=== PATIENT | male | born 1990 | race Caucasian/White ===

== ENCOUNTER 2016-10-23 18:21 | Emergency (ER) | payer OTHER ==
[2016-10-23 19:12] VITALS: BP 136/77
--- NOTE | 2016-10-23 19:20 | EDM.PDOC ---
ED HPI GENERAL MEDICAL PROBLEM - General Chief Complaint: Upper Extremity Injury/Pain Stated Complaint: PAIN IN LEFT WRIST Time Seen by Provider: 10/23/16 19:13 Source of Information: Reports: Patient, Family, RN Notes Reviewed History Limitations: Reports: No Limitations - History of Present Illness INITIAL COMMENTS - FREE TEXT/NARRATIVE: 26-year-old gentleman presents emergency department day complaint of left wrist pain, he injured himself earlier with a fall on outstretched hand he does have a history of fracture and that wrist a couple years ago. He has full range of motion however pain is worse with extension Left Wrist Pain Score (Numeric/FACES): 3 - Related Data Allergies Allergy/AdvReac Type Severity Reaction Status Date / Time No Known Allergies Allergy Verified 10/23/16 19:05 Home Meds: Home Meds NK [No Known Home Meds] 10/23/16 [History] Past Medical History Musculoskeletal History: Reports: Fracture Other Musculoskeletal History: L wrist - Infectious Disease History Infectious Disease History: Reports: Chicken Pox Social & Family History - Tobacco Use Smoking Status *Q: Never Smoker Second Hand Smoke Exposure: No - Caffeine Use Caffeine Use: Reports: Coffee, Energy Drinks, Soda - Alcohol Use Days Per Week of Alcohol Use: 0 - Recreational Drug Use Recreational Drug Use: No Review of Systems - Review of Systems Review Of Systems: See Below Musculoskeletal: Reports: Joint Pain (Left wrist) Skin: Reports: No Symptoms Neurological: Reports: No Symptoms ED EXAM, GENERAL - Physical Exam Exam: See Below Free Text/Narrative:: Examination of the left wrist I don't appreciate any erythema or edema he has full range of motion the wrist pain is elicited with extension he has pain to palpation along the dorsal aspect of the wrist radial pulses 2+ full range of motion of all digits no deficits noted Course - Vital Signs Last Recorded V/S: Last Vital Signs Temp 97.8 F 10/23/16 19:11 Pulse 73 10/23/16 19:11 Resp 16 10/23/16 19:11 BP 136/77 10/23/16 19:11 Pulse Ox 100 10/23/16 19:11 - Orders/Labs/Meds Orders: Active Orders 24 hr Category Date Time Status Wrist Comp Min 3V Lt [CR] Stat Exams 10/23/16 19:17 Taken Departure - Departure Time of Disposition: 19:46 Disposition: Home, Self-Care 01 Condition: Good Clinical Impression: Left wrist sprain Qualifiers: Encounter type: initial encounter Qualified Code(s): S63.502A - Unspecified sprain of left wrist, initial encounter - Discharge Information Referrals: PCP,None [Primary Care Provider] - Forms: ED Department Discharge Additional Instructions: Use ibuprofen or Tylenol as needed for pain control, Please followup with your primary care provider in 3-5 days if not better, please call return to the emergency department with worsening of symptoms. - My Orders Last 24 Hours: My Active Orders 10/23/16 19:17 Wrist Comp Min 3V Lt [CR] Stat - Assessment/Plan Last 24 Hours: My Active Orders 10/23/16 19:17 Wrist Comp Min 3V Lt [CR] Stat Plan: Assessment Acuity = acute Site and laterality = left wrist sprain Etiology = secondary to a fall on outstretched hand Manifestations = none Location of injury = Home Lab values = wrist x-ray I did review films myself I cannot appreciate any acute process, the official read from radiology is pending Plan I did review x-ray films with him offered him a splint he declined, radiology disc was provided he will follow-up with his primary care upon return home if no improvement Patient was in agreement with the plan all questions were answered, they were instructed to return to the emergency department or call for worsening symptoms. This note was dictated using [employer] voice recognition software please call with any questions.
--- NOTE | 2016-10-26 08:35 | CR ---
Wrist Comp Min 3V Lt HISTORY: Fall pain COMPARISON: None FINDINGS: No fracture or dislocation. No bony destructive process. Mild soft tissue swelling at the l evel of the wrist.
== END 2016-10-23 20:09 | disposition home or self-care (01) ==
LOC: JP.ED 18:21
DX: S63.502A Unspecified sprain of left wrist, initial encounter (principal); W19.XXXA Unspecified fall, initial encounter
CPT/HCPCS: 73110-26-LT; 73110-LT; 99284